=== PATIENT | male | born 1980 ===

== ENCOUNTER 2016-06-22 14:04 | Emergency (ER) | payer MEDICAID | END 2016-06-22 15:30 | disposition left against medical advice (07) | LOC: UCCORT 14:04 | DX: R50.9 Fever, unspecified (principal); J11.1 Influenza due to unidentified influenza virus with other respiratory manifestations; Z53.21 Procedure and treatment not carried out due to patient leaving prior to being seen by health care provider ==

== ENCOUNTER 2016-06-22 18:52 | Emergency (ER) | payer MEDICAID ==
[2016-06-22 20:49] VITALS: BP 127/86
--- NOTE | 2016-06-22 21:03 | UC ---
Respiratory Complaint HPI - HPI Summary HPI Summary: The patient comes in today for: 1. Cough, rhinitis, chest congestion, fever: Onset: 4 days ago. Palliative/provocative: Nothing has helped. Quality: Congestion Region: Lungs. Severity: 0/10 Time: Constant. Associated symptoms: Cough: Production "sometimes"--yellow. chest pain: None at this time. Dyspnea: "little bit" with wheezing. Inhaler: He has used them in the past, but is not using one now. Rhinitis: Yellow mucous. Sinus congestion: Present. Fever: 101.5 this AM Body aches. Urine: medium yellow. * - History of Current Complaint Chief Complaint: UCGeneralIllness Stated Complaint: FEVER, COUGH, SORE THROAT Time Seen by Provider: 06/22/16 20:53 Hx Obtained From: Patient, Family/[employer]eder - Allergies/Home Medications Allergies/Adverse Reactions: Allergies Allergy/AdvReac Type Severity Reaction Status Date / Time Acetaminophen [From [place]] Allergy Intermediate Hives Verified 06/22/16 20:49 Hydrocodone [From [place]] Allergy Intermediate Hives Verified 06/22/16 20:49 Propoxyphene [From [place]] Allergy Intermediate hvies Verified 06/22/16 20:49 PMH/Surg Hx/FS Hx/Imm Hx Previously Healthy: Yes Endocrine History Of: Denies: Diabetes, Thyroid Disease, Hyperthyroidism, Hypothyroidism, Dyslipidemia Cardiovascular History Of: Denies: Cardiac Disorders, Hypertension, Pacemaker/ICD, Myocardial Infarction , Congestive Heart Failure, Atrial Fibrillation, Deep Vein Thrombosis, Bleeding Disorders Respiratory History Of: Reports: Asthma Denies: COPD, Bronchitis, Pneumonia, Pulmonary Embolism GI/ History Of: Denies: Gastroesophageal Reflux, Ulcer, Gastrointestinal Bleed, Gall Bladder Disease, Kidney Stones, Diverticulitis, Renal Disease, Urosepsis Neurological History Of: Denies: TIA, CVA, Dementia, Seizures, Migraine Psychological History Of: Reports: Anxiety - No Rx. Denies: Depression, Bipolar Disorder, Schizophrenia, Post Traumatic Stress Disorder Cancer History Of: Denies: Lung Cancer, Colorectal Cancer, Breast Cancer, Prostate Cancer Other History Of: Negative For: HIV, Hepatitis B, Hepatitis C, Anticoagulant Therapy - Surgical History Surgical History: Yes Surgery Procedure, Year, and Place: right total knee reconstruction - Family History Known Family History: Positive: Hypertension Negative: Cardiac Disease - Social History Occupation: Unemployed Alcohol Use: Rare Substance Use Type: Marijuana Substance Use Comment - Amount & Last Used: rare Smoking Status (MU): Heavy Every Day Tobacco Smoker Type: Cigarettes Amount Used/How Often: 1 ppd - Immunization History Most Recent Influenza Vaccination: none Review of Systems Constitutional: Fever Skin: Negative Eyes: Negative ENT: Nasal Discharge Respiratory: Shortness Of Breath, Cough Cardiovascular: Negative Gastrointestinal: Negative Genitourinary: Negative All Other Systems Reviewed And Are Negative: Yes Physical Exam Triage Information Reviewed: Yes Appearance: Well-Nourished, Ill-Appearing - Slightly sluggish, but otherwise normal. Vital Signs: Initial Vital Signs Temp 98.7 F 06/22/16 20:44 Pulse 93 06/22/16 20:44 Resp 16 06/22/16 20:44 BP 127/86 06/22/16 20:44 Pulse Ox 96 06/22/16 20:44 Vital Signs Reviewed: Yes Eyes: Positive: Conjunctiva Clear. Negative: Discharge ENT: Positive: Hearing grossly normal, Other: - Slight sinus pressure.. Negative: Pharyngeal erythema, Nasal congestion, Nasal drainage, TM bulging, TM dull, TM red, Tonsillar swelling, Tonsillar exudate Dental: Negative: Gross Decay/Caries @, Dental Fracture @ Neck: Positive: Supple, Nontender, No Lymphadenopathy. Negative: Nuchal Rigidity Respiratory: Positive: No respiratory distress, No accessory muscle use, Rhonchi - Scattered., Wheezing - Scattered. Negative: Crackles Cardiovascular: Positive: RRR, No Murmur Abdomen Description: Positive: Nontender, No Organomegaly, Soft. Negative: Distended, Guarding Musculoskeletal: Positive: Strength Intact, ROM Intact, No Edema Neurological: Positive: Alert, Muscle Tone Normal Psychological: Positive: Age Appropriate Behavior, Consolable Skin: Negative: rashes, breakdown UC Diagnostic Evaluation - Laboratory O2 Sat by Pulse Oximetry: 96 Respiratory Course/Dx - Differential Dx/Diagnosis Provider Diagnoses: Sinusitis. Bronchitis with bronchospasm. Discharge - Discharge Plan Condition: Stable Disposition: HOME Patient Education Materials: Sinusitis (ED), Bronchospasm (ED), Acute Bronchitis (ED)
[2016-06-22] MEDS ORDERED: Amoxicillin/Clavulanate TAB* 875 MG PO ONE (21:06)
[2016-06-22] MEDS ORDERED: Albuterol HFA INHALER* 8 gm MDI INH ONE (21:07)
== END 2016-06-22 21:36 | disposition home or self-care (01) ==
LOC: UCCORT 18:52
DX: J32.9 Chronic sinusitis, unspecified (principal); J20.9 Acute bronchitis, unspecified; Z88.6 Allergy status to analgesic agent; Z88.5 Allergy status to narcotic agent; F41.9 Anxiety disorder, unspecified; F17.210 Nicotine dependence, cigarettes, uncomplicated
CPT/HCPCS: 99202; A9270-GY; G0463